=== PATIENT | male | born 1975 | race Caucasian/White ===

== ENCOUNTER 2020-11-02 08:30 | Emergency (ER) | payer MEDICARE, OTHER ==
[2020-11-02] MEDS ORDERED: Nitroglycerin 0.4 MG TAB (25 Tab Bottle) ONE (08:54)
[2020-11-02 08:59] LABS: #Basophils 0.1 thou/uL (0.0-0.2); #Eosinphils 0.2 thou/uL (0.0-0.7); #Lymphocytes 1.7 thou/uL (1.20-3.40); #Monocytes 0.5 thou/uL (0.11-0.59); #Neutrophils 5.6 thou/uL (1.40-6.50); %Basophils 1.3 % (0.0-1.0); %Eosinophils 1.9 % (0.0-10.0); %Lymphocytes 21.1 % (21.0-51.0); %Neutrophils 69.8 % (42.0-75.0); Mean Corpuscular HGB CONC 33.7 g/dL (32.0-36.0); Mean Corpuscular Hemoglobin 33.3 pg (27.0-31.0); Mean Corpuscular Volume 98.9 fL (78.0-98.0); Mean Platelet Volume 8.8 fL (7.4-10.4); Platelet Count 220 thou/uL (130-400); RBC Distribution Width 11.7 % (11.5-14.5); Red Blood Cell (RBC) Count 5.09 mill/uL (4.70-6.10); White Blood Cell (WBC) Count 8.1 thou/uL (4.8-10.8)
[2020-11-02] MEDS ORDERED: Aspirin Chewable 81 MG TAB ONE (09:02)
[2020-11-02] MEDS ORDERED: Sodium Chloride 0.9% 500 ML ONE (09:02)
[2020-11-02 09:06] LABS: INR-International Normal Ratio 2.5; PTT 51.3 sec (22.9-36.1); Prothrombin Time 27.6 sec (12.0-14.7)
[2020-11-02 09:20] LABS: ALT (SGPT) 20 U/L (8-55); AST (SGOT) 25 U/L (5-34); Albumin 4.6 g/dL (3.5-5.0); Alkaline Phosphatase 89 U/L (40-110); Anion Gap 16 mmol/L (10-20); BUN (Urea Nitrogen) 8 mg/dL (8.9-20.6); Bilirubin, Total 0.4 mg/dL (0.2-1.2); Calc. Creatinine Clearance 0 mL/min (70-130); Carbon Dioxide 22 mmol/L (22-29); Chloride 103 mmol/L (98-107); Globulin 3.3 g/dL (2.4-3.5); Glucose 96 mg/dL (70-105); Potassium 4.3 mmol/L (3.5-5.1); Protein, Total 7.9 g/dL (6.0-8.3); Sodium 137 mmol/L (136-145)
--- NOTE | 2020-11-02 09:22 | RAD ---
XR Chest 1 View Portable History: Chest pain Comparison: Radiograph June 06, 2018 Findings: Recording device projects over the left hemithorax. Heart size upper limits of normal. No c onfluent airspace consolidation, pneumothorax or effusion. Multiple midline sternotomy wires with fracture of the second from most inferior wire. Impression: No acute intrathoracic abnormality.
[2020-11-02] MEDS ORDERED: Acetaminophen 500 MG TAB ONE (18:51)
== END 2020-11-02 20:05 | disposition short-term general hospital (02) ==
LOC: NAV ERS 08:30
DX: S22.20XA Unspecified fracture of sternum, initial encounter for closed fracture (principal); G40.909 Epilepsy, unspecified, not intractable, without status epilepticus; I48.92 Unspecified atrial flutter; F17.210 Nicotine dependence, cigarettes, uncomplicated; Z86.73 Personal history of transient ischemic attack (TIA), and cerebral infarction without residual deficits; Z79.899 Other long term (current) drug therapy; Z79.01 Long term (current) use of anticoagulants; Z71.6 Tobacco abuse counseling
CPT/HCPCS: 71045; 80053; 83880; 84484; 85025; 85610; 85730; 93005; 94760; 99406; J7030